=== PATIENT | male | born 1975 | race Caucasian/White ===

== ENCOUNTER 2019-01-12 18:07 | Emergency (ER) | payer OTHER ==
[2019-01-12 18:15] VITALS: BP 150/91
--- NOTE | 2019-01-12 18:18 | ER Document Report ---
ED Medical Screen (RME) - General Chief Complaint: Arm Pain Stated Complaint: RIGHT ARM PAIN Time Seen by Provider: 01/12/19 18:15 Primary Care Provider: CAROLINA MALDONADO MD [Primary Care Provider] - Follow up as needed Mode of Arrival: Ambulatory Information source: Patient Notes: 43-year-old male presented to ED for complaint of pain to his right arm. He states he was trying to pull start on a 4 bhat and he thinks he injured the ligaments or tendons in his right forearm. He states it is been throbbing since he pulled the starter. He is alert oriented respirations regular and unlabored speaking in full sentences. Has full range of motion to his hand and wrist. He states there is pain in his forearm and his fingers keep going to sleep. I have greeted and performed a rapid initial assessment of this patient. A comprehensive ED assessment and evaluation of the patient, analysis of test results and completion of medical decision making process will be conducted by an additional ED providers. TRAVEL OUTSIDE OF THE [place] IN LAST 30 DAYS: No - Related Data Allergies/Adverse Reactions: No Known Allergies Allergy (Unverified 08/03/15 16:13) Past Medical History - Past Medical History Cardiac Medical History: Reports: Hx Hypercholesterolemia Endocrine Medical History: Reports: Hx Diabetes Mellitus Type 1, Hx Diabetes Mellitus Type 2, Hx Hypothyroidism Psychiatric Medical History: Denies: Hx Depression - Immunizations Immunizations up to date: Yes Hx Diphtheria, Pertussis, Tetanus Vaccination: Yes Doctor's Discharge - Discharge Referrals: CAROLINA MALDONADO MD [Primary Care Provider] - Follow up as needed
--- NOTE | 2019-01-12 18:51 | RADIOLOGY REPORT (SQ) ---
EXAM DESCRIPTION: FOREARM RIGHT COMPLETED DATE/TIME: 01/12/2019 6:43 pm REASON FOR STUDY: pain injury COMPARISON: None. NUMBER OF VIEWS: Two views. TECHNIQUE: Two radiographic images acquired of the right forearm, including elbow and wrist in at le ast one projection. LIMITATIONS: None. FINDINGS: MINERALIZATION: Normal. BONES: No acute fracture. No worrisome bone lesions. SOFT TISSUES: No obvious swelling or foreign body. OTHER: No other significant finding. IMPRESSION: NEGATIVE STUDY OF THE RIGHT FOREARM. NO RADIOGRAPHIC EVIDENCE OF ACUTE INJURY. TECHNICAL DOCUMENTATION: JOB ID: [id number] [employer]- All Rights Reserved Reading location - IP/workstation name: [email or web address] [id number]
--- NOTE | 2019-01-12 18:52 | RADIOLOGY REPORT (SQ) ---
EXAM DESCRIPTION: HAND RIGHT 3 VIEWS COMPLETED DATE/TIME: 01/12/2019 6:43 pm REASON FOR STUDY: Pain and injury wrist and hand and forearm COMPARISON: None. EXAM PARAMETERS: NUMBER OF VIEWS: Three views. TECHNIQUE: AP, lateral and oblique radiographic images acquired of the right hand. LIMITATIONS: None. FINDINGS: MINERALIZATION: Normal. BONES: No acute fracture or dislocation. No worrisome bone lesions. JOINTS: No effusions. SOFT TISSUES: No soft tissue swelling. No foreign body. OTHER: No other significant finding. IMPRESSION: NEGATIVE STUDY OF THE RIGHT HAND. NO RADIOGRAPHIC EVIDENCE OF ACUTE INJURY. TECHNICAL DOCUMENTATION: JOB ID: [id number] [employer]- All Rights Reserved Reading location - IP/workstation name: [email or web address]
--- NOTE | 2019-01-12 18:52 | RADIOLOGY REPORT (SQ) ---
EXAM DESCRIPTION: WRIST RIGHT 3 VIEWS COMPLETED DATE/TIME: 01/12/2019 6:43 pm REASON FOR STUDY: Pain and injury wrist and hand and forearm COMPARISON: None. NUMBER OF VIEWS: Three views. TECHNIQUE: AP, lateral, and oblique radiographic images acquired of the right wrist. LIMITATIONS: None. FINDINGS: MINERALIZATION: Normal. BONES: No acute fracture or dislocation. No worrisome bone lesions. Normal alignment. SOFT TISSUES: No soft tissue swelling. No foreign body. OTHER: No other significant finding. IMPRESSION: NEGATIVE STUDY OF THE RIGHT WRIST. NO RADIOGRAPHIC EVIDENCE OF ACUTE INJURY. TECHNICAL DOCUMENTATION: JOB ID: [id number] [employer]- All Rights Reserved Reading location - IP/workstation name: [email or web address]
--- NOTE | 2019-01-12 19:05 | ER Document Report ---
HPI - HPI Patient complains to provider of: rightarm pain Time Seen by Provider: 01/12/19 18:15 Onset: Yesterday Onset/Duration: Persistent Severity: Severe Pain Level: 4 Context: This 43-year-old male presents emergency department with right hand forearm elbow pain that started yesterday after he was pulling the starter cord for a 4 bhat. Reports he pulled the cord and it kind of stepped back on him. Jerking his hand. Reports since that time he has had pain in his forearm and his third and fourth fingers feel numb. Denies past medical history of injury to the arm or hand. 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 No other complaints such as fever vomiting diarrhea. Associated Symptoms: None Exacerbated by: Denies Relieved by: Denies Similar symptoms previously: No Recently seen / treated by doctor: No - REPRODUCTIVE Reproductive: DENIES: : Past Medical History - General Information source: Patient - Social History Smoking Status: Never Smoker Frequency of alcohol use: Occasional Drug Abuse: None Occupation: [employer] Family History: Reviewed & Not Pertinent Patient has suicidal ideation: No Patient has homicidal ideation: No - Past Medical History Cardiac Medical History: Reports: Hx Hypercholesterolemia Endocrine Medical History: Reports: Hx Diabetes Mellitus Type 1, Hx Diabetes Mellitus Type 2, Hx Hypothyroidism Psychiatric Medical History: Denies: Hx Depression Surgical Hx: Negative - Immunizations Immunizations up to date: Yes Hx Diphtheria, Pertussis, Tetanus Vaccination: Yes Vertical Provider Document - CONSTITUTIONAL Agree With Documented VS: Yes Exam Limitations: No Limitations General Appearance: WD/WN, No Apparent Distress - INFECTION CONTROL TRAVEL OUTSIDE OF THE [place] IN LAST 30 DAYS: No - HEENT HEENT: Atraumatic - NECK Neck: Supple - RESPIRATORY Respiratory: No Respiratory Distress - CARDIOVASCULAR Cardiovascular: Regular Rate - MUSCULOSKELETAL/EXTREMETIES Musculoskeletal/Extremeties: MAEW, FROM, Tender - right 3rd/4th fingers ttp- reports numb feeling, no obvious injury, cap refill<2seconds 3/4th palm fingers near PIP with slight ecchymosis, good radial pulse Right elbow forearm hand with no obvious injury no deformity good radial pulse - NEURO Level of Consciousness: Awake, Alert, Appropriate Motor/Sensory: No Motor Deficit - DERM Integumentary: Warm, Dry Course - Re-evaluation Re-evalutation: 01/12/19 19:01 Hand X-Ray 01/12/19 18:18 IMPRESSION: NEGATIVE STUDY OF THE RIGHT HAND. NO RADIOGRAPHIC EVIDENCE OF ACUTE INJURY. Wrist X-Ray 01/12/19 18:18 IMPRESSION: NEGATIVE STUDY OF THE RIGHT WRIST. NO RADIOGRAPHIC EVIDENCE OF ACUTE INJURY. Forearm X-Ray 01/12/19 18:23 IMPRESSION: NEGATIVE STUDY OF THE RIGHT FOREARM. NO RADIOGRAPHIC EVIDENCE OF ACUTE INJURY. 01/12/19 19:24 Patient presents emergency department with complaints of right forearm hand pain after pulling a pull cord on a 4 bhat and it snapping back on him. Denies past medical history of injury to this arm. He is right-hand dominant. 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 Slight ecchymosis to the palm of his fourth and fifth fingers near the pIP. Good cap refill less than 2 seconds good radial pulse. No obvious deformity. Patient was instructed to monitor the symptoms and follow-up with orthopedic for continued pain. He verbalized understanding to all instructions. Dictation of this chart was performed using voice recognition software; therefore, there may be some unintended grammatical errors. - Vital Signs Vital signs: Temp Pulse Resp BP Pulse Ox 97.8 F 73 18 150/91 H 99 01/12/19 18:15 01/12/19 18:15 01/12/19 18:15 01/12/19 18:15 01/12/19 18:15 - Diagnostic Test Radiology reviewed: Image reviewed Discharge - Discharge Clinical Impression: right forearm hand pain Condition: Stable Disposition: HOME, SELF-CARE Instructions: Use of Mpke-Rox-Lkasors Ibuprofen ([facility]), Ice & Elevation ([facility]) Additional Instructions: *You have been evaluated for right forearm, hand pain *rest ice elevate your arm/hand *Follow up with orthopedics within one week for continued pain *Take ibuprofen as indicated *Return to ED for worsening condition, changes, needs, concerns Referrals: CAROLINA MALDONADO MD [Primary Care Provider] - Follow up as needed MARILEE TOMPKINS DO [ACTIVE STAFF] - Follow up in 1 week
== END 2019-01-12 19:24 | disposition home or self-care (01) ==
LOC: ER 18:07
DX: M79.601 Pain in right arm (principal); M79.641 Pain in right hand; R20.0 Anesthesia of skin; X58.XXXA Exposure to other specified factors, initial encounter; E11.9 Type 2 diabetes mellitus without complications
CPT/HCPCS: 99283

== ENCOUNTER 2019-02-19 12:59 | Emergency (ER) | payer OTHER ==
--- NOTE | 2019-02-19 13:43 | ER Document Report ---
ED Skin Rash/Insect Bite/Abscs - General Chief Complaint: Abscess Stated Complaint: POSSIBLE ABSCESS Time Seen by Provider: 02/19/19 13:22 Primary Care Provider: CAROLINA MALDONADO MD [NO LOCAL MD] - Follow up as needed Mode of Arrival: Ambulatory Information source: Patient Notes: 43-year-old male presented to ED for abscess to the left side of his neck. He states it was draining but is no longer draining and is getting larger and more painful. He does have a history of MRSA and he is a diabetic. He does have thyroid issues and cholesterol issues. He is alert oriented respirations regular nonlabored at this time. TRAVEL OUTSIDE OF THE [place] IN LAST 30 DAYS: No - HPI Patient complains to provider of: Tender/swollen area Onset: Other - Monday Onset/Duration: Gradual Quality of pain: Achy, Burning, Sharp, Throbbing Severity: Moderate Pain Level: 3 Skin Character: Abscess Skin Temperature: Warm Quality of rash: Painful Identify cause: Yes - Abscess Exacerbated by: Movement Relieved by: Denies Similar symptoms previously: Yes Recently seen / treated by doctor: No - Related Data Allergies/Adverse Reactions: No Known Allergies Allergy (Verified 02/19/19 13:19) Past Medical History - General Information source: Patient - Social History Smoking Status: Never Smoker Frequency of alcohol use: Social Drug Abuse: None Lives with: Family Family History: Reviewed & Not Pertinent Patient has suicidal ideation: No Patient has homicidal ideation: No - Past Medical History Cardiac Medical History: Reports: Hx Hypercholesterolemia Pulmonary Medical History: Reports: None EENT Medical History: Reports: None Neurological Medical History: Reports: None Endocrine Medical History: Reports: Hx Diabetes Mellitus Type 2, Hx Hypothyroidism Renal/ Medical History: Reports: None Malignancy Medical History: Reports None GI Medical History: Reports: None Musculoskeletal Medical History: Reports None Skin Medical History: Reports Hx Cellulitis, Reports Hx MRSA Psychiatric Medical History: Reports: None Traumatic Medical History: Reports: None Infectious Medical History: Reports: None - Immunizations Immunizations up to date: Yes Hx Diphtheria, Pertussis, Tetanus Vaccination: Yes Review of Systems - Review of Systems Constitutional: No symptoms reported EENT: No symptoms reported Cardiovascular: No symptoms reported Respiratory: No symptoms reported Gastrointestinal: No symptoms reported Genitourinary: No symptoms reported Male Genitourinary: No symptoms reported Musculoskeletal: No symptoms reported Skin: Other - Abscess left neck Hematologic/Lymphatic: No symptoms reported Neurological/Psychological: No symptoms reported -: Yes All other systems reviewed and negative Physical Exam - Vital signs Vitals: Temp Pulse Resp BP Pulse Ox 98.0 F 82 16 137/85 H 96 02/19/19 13:09 02/19/19 13:09 02/19/19 13:09 02/19/19 13:09 02/19/19 13:09 Interpretation: Normal - General General appearance: Appears well, Alert - HEENT Head: Normocephalic, Atraumatic Eyes: Normal Pupils: PERRL - Respiratory Respiratory status: No respiratory distress Chest status: Nontender Breath sounds: Normal Chest palpation: Normal - Cardiovascular Rhythm: Regular Heart sounds: Normal auscultation Murmur: No - Abdominal Inspection: Normal Distension: No distension Bowel sounds: Normal Tenderness: Nontender Organomegaly: No organomegaly - Back Back: Normal, Nontender - Extremities General upper extremity: Normal inspection, Nontender, Normal color, Normal ROM, Normal temperature General lower extremity: Normal inspection, Nontender, Normal color, Normal ROM, Normal temperature, Normal weight bearing. No: Reggie's sign - Neurological Neuro grossly intact: Yes Cognition: Normal Orientation: AAOx4 Esperanza Coma Scale Eye Opening: Spontaneous Esperanza Coma Scale Verbal: Oriented Eldridge Coma Scale Motor: Obeys Commands Eldridge Coma Scale Total: 15 Speech: Normal Motor strength normal: LUE, RUE, LLE, RLE Sensory: Normal - Psychological Associated symptoms: Normal affect, Normal mood - Skin Skin Temperature: Warm Skin Moisture: Dry Skin Color: Normal Skin irregularity: Abscess Location of irregularity: Neck Irregularity with: Swelling, Tenderness, Warmth Course - Vital Signs Vital signs: Temp Pulse Resp BP Pulse Ox 97.9 F 74 14 124/84 98 02/19/19 16:54 02/19/19 16:54 02/19/19 16:54 02/19/19 16:54 02/19/19 16:54 - Laboratory Result Diagrams: 02/19/19 13:50 02/19/19 13:50 Laboratory results interpreted by me: 02/19/19 13:50 Glucose 111 H - Diagnostic Test Radiology reviewed: Image reviewed, Reports reviewed Procedures - Incision and Drainage Left Neck Time completed: 13:51 Type: Complex, Multiple Anesthetic type: 1% Lidocaine mL's of anesthetic: 5 Blade size: 11 I&D procedure: Shurclens applied Incision Method: Incision made by scalpel Amount/type of drainage: Large amount purulent drainage Notes: 02/19/19 13:51 After superficial abscess was I&D and there was still large firm area noted after I&D and large amount of drainage. Consulted Dr. Payne due to came and examined the patient. He recommended a soft tissue IV contrasted CT of the neck. CBC chemistry blood culture and wound culture have been ordered. Discharge - Discharge Clinical Impression: Abscess of skin of neck Condition: Stable Disposition: HOME, SELF-CARE Additional Instructions: ABSCESS: You have an abscess (boil). This a pus-forming infection, usually due to staph. Some boils may be left to drain on their own, but most require lancing. From the time the tender lump first appears, it may be three or four days before the abscess is ready to jai. Local heat and rest help at this stage of treatment. An antibiotic may prevent spread of the infection. Once the abscess is opened, packing may be placed into it. This is done so pus is not sealed inside by premature closure of the cavity. The packing will be removed at your follow-up visit or you may be advised to remove it yourself at home. Sometimes this packing must be replaced a few times during healing. The wound will heal with surprisingly little scar. Depending on the size and location of an abscess, healing can take one to four weeks. You may shower and wash the area around the incision site two or three times a day. Antibiotics may be prescribed, but are usually not necessary after an abscess has been drained. If you develop fever, chills, worsening pain, or increasing swelling in the area, call the doctor or return immediately. POST INCISION AND DRAINAGE: You have had an incision made to allow drainage of an abscess. The incision must remain open so that pus and debris can drain from the wound. If the abscess cavity is large, packing is placed. This keeps the tissues from collapsing and trapping pus inside, while the body shrinks the cavity. The packing may need to be replaced every day or two. The physician will instruct you on the packing. Keep a bulky dressing over the area. Replace it if it becomes saturated with blood or pus. Do not disturb the packing (if present). You may shower and cleanse the area with gentle soap and warm water two or three times a day. Local warmth may be soothing, and may promote faster healing. Return if you develop high fever or chills, or if you note spreading redness, increasing swelling, or increasing tenderness. MRSA CELLULITIS: You have an infection of your skin and underlying soft tissues called cellulitis. This is due to bacteria, which can enter through any break in the skin, or even through an irritated hair follicle. Untreated, cellulitis will usually worsen and may form an abscess which requires draining. Although many bacterial organisms can cause cellulitis and abscess formations, the most likely bacteria is Methicillin-Resistant Staph Aureus, or MRSA for short. Antibiotics are required. Usually, warm packs or warm soaks, and elevation of the infected area are recommended. You should start getting better within 24 to 36 hours. Most infections respond quickly to the right medication. Follow-up care is important, however, to check for abscess (boil) formation, unsuspected foreign body, or resistant infection. If you develop fever, chills, or if the area of infection is becoming rapidly more swollen or painful, call the doctor at once. CEPHALEXIN: The antibiotic you've been prescribed is a member of the cephalosporin class. This type of antibiotic covers a wide variety of infections, including those of the skin, lungs, and urinary tract. It's useful for staph infections. This antibiotic is slightly similar to the penicillin family. In rare cases, a person who is allergic to penicillin will also be allergic to this medication. If you have had a severe allergic reaction to penicillin, and have not taken this antibiotic since that time, notify your doctor. Antibiotics which cover many germs ("broad spectrum" antibiotics) are more likely to cause diarrhea or "yeast" infections. Women prone to vaginal yeast problems may suffer an attack after taking this antibiotic. In infants, oral thrush (white spots "stuck" on the cheek) or yeast diaper rash may result. See your doctor if these problems occur. Call at once if you develop itching, hives, shortness of breath, or lightheadedness. TRIMETHOPRIM-SULFA: You have been given a prescription for trimethoprim-sulfa (TMS, Septra, Bactrim). This is a combination antibiotic of the sulfa class, often used for urinary tract infections, middle ear infections, bronchitis, shigella intestinal infection, and Pneumocystis pneumonia. TMS is usually well-tolerated. Occasional side effects include nausea and decreased appetite. Septra is not recommended for infants less than two months of age. Do not take this medication if you have experienced severe side effects or allergy to sulfa medicine. You should stop this medicine at once and contact your physician if you develop any rash, joint pain, shortness of breath, bruising, or jaundice (yellow color in the skin), or if you develop any other new or unusual symptoms. Please follow-up with your primary care or the ED to have the packing removed and your abscess reevaluated on Monday FOLLOW-UP CARE: Most simple abscesses will not require a follow up visit. If you had packing placed in the abscess, remove it as instructed by the physician. If you have been referred to a physician for follow-up care, call the physicians office for an appointment as you were instructed or within the next two days. If you experience worsening or a significant change in your symptoms, return to the Emergency Department at any time for re-evaluation. Prescriptions: Sulfamethoxazole/Trimethoprim [Bactrim Ds Tablet] 1 each PO BID #20 tablet Cephalexin Monohydrate [Keflex 500 mg Capsule] 500 mg PO QID #20 capsule Forms: Elevated Blood Pressure Referrals: CAROLINA MALDONADO MD [NO LOCAL MD] - Follow up as needed
[2019-02-19 14:10] LABS: ABSOLUTE EOSINOPHILS # (AUTO) 0.2 10^3/uL (0.0-0.6); ABSOLUTE LYMPHOCYTES (AUTO) 2.3 10^3/uL (0.5-4.7); ABSOLUTE MONOCYTES (AUTO) 0.7 10^3/uL (0.1-1.4); ABSOLUTE NEUT (AUTO) 6.6 10^3/uL (1.7-8.2); BASOPHILS % (AUTO) 0.3 % (0-2); EOSINOPHILS % (AUTO) 1.6 % (0-6); HEMATOCRIT 45.3 % (37.9-51.0); HEMOGLOBIN 15.5 g/dL (13.5-17.0); LYMPHOCYTES % (AUTO) 23.5 % (13-45); MEAN CORPUSCULAR HEMOGLOBIN 30.5 pg (27.0-33.4); MEAN CORPUSCULAR HGB CONC 34.2 g/dL (32.0-36.0); MEAN CORPUSCULAR VOLUME 89 fl (80-97); MONOCYTES % (AUTO) 7.1 % (3-13); PLATELET COUNT 283 10^3/uL (150-450); RED BLOOD COUNT 5.07 10^6/uL (4.35-5.55); RED CELL DISTRIBUTION WIDTH 13.7 % (11.5-14.0); SEGMENTED NEUTROPHILS % (AUTO) 67.5 % (42-78); TOTAL CELLS COUNTED % (AUTO) 100 %; WHITE BLOOD COUNT 9.8 10^3/uL (4.0-10.5)
[2019-02-19 14:38] LABS: ALBUMIN 4.4 g/dL (3.5-5.0); ALKALINE PHOSPHATASE 88 U/L (38-126); ANION GAP 9 (5-19); ASPARTATE AMINO TRANSFERASE 20 U/L (17-59); BILIRUBIN,DIRECT 0.2 mg/dL (0.0-0.4); BILIRUBIN,TOTAL 0.8 mg/dL (0.2-1.3); BLOOD UREA NITROGEN 13 mg/dL (7-20); CALCIUM 9.5 mg/dL (8.4-10.2); CARBON DIOXIDE 28 mmol/L (22-30); CHLORIDE 107 mmol/L (98-107); GLUCOSE 111 mg/dL (75-110); POTASSIUM 3.9 mmol/L (3.6-5.0)
--- NOTE | 2019-02-19 16:06 | RADIOLOGY REPORT (SQ) ---
EXAM DESCRIPTION: CT SOFT TISSUE NECK WITH COMPLETED DATE/TIME: 02/19/2019 3:13 pm REASON FOR STUDY: abscess COMPARISON: None. TECHNIQUE: Post IV contrasted scanning from skull base through lung apices with review of bone, soft tissue and lung windows. Reconstructed coronal and sagittal MPR images reviewed. All images stored on PACS. All CT scanners at this facility use dose modulation, iterative reconstruction, and/or weight based d osing when appropriate to reduce radiation dose to as low as reasonably achievable (ALARA). [facility]: Dose Right [facility]: CareDose [facility]: Dose Right [facility]: Teradose 4D [facility]: Bocandy CONTRAST TYPE AND DOSE: contrast/concentration: Isovue 350.00 mg/ml; Total Contrast Delivered: 75.0 ml; Total Saline Delivered: 53.0 ml RENAL FUNCTION: BUN 13 creatinine 0.88 RADIATION DOSE: CT Rad equipment meets quality standard of care and radiation dose reduction techniq ues were employed. CTDIvol: 16.9 mGy. DLP: 555 mGy-cm. . LIMITATIONS: None. FINDINGS: SKULL BASE: Intact. MAJOR SALIVARY GLANDS: No solid or cystic masses. No inflammatory changes. LYMPHADENOPATHY: There are some small nonspecific sub mandibular and submental nodes. MUCOSAL MASSES OR ASYMMETRY: There is mild prominence of the right pharyngeal tonsil. No peritonsill ar abscess is appreciated. LARYNX/CORDS: No abnormal findings. VASCULAR STRUCTURES: The major vessels are patent. LUNG APICES: Clear. BONES: Intact. THYROID: Normal size. No masses. PARANASAL SINUSES: Clear. OTHER: No other significant finding. IMPRESSION: Right tonsillar prominence. No peritonsillar abscess. There are some small nonspecific sub mandibular and submental nodes. TECHNICAL DOCUMENTATION: JOB ID: [id number] Quality ID # [id number]: Final reports with documentation of one or more dose reduction techniques (e.g., Au tomated exposure control, adjustment of the mA and/or kV according to patient size, use of iterative reconstruction technique) 2010 [employer]- All Rights Reserved Reading location - IP/workstation name: [email or web address]
[2019-02-19] MEDS ORDERED: LIDOCAINE 1% INJ-PF (10 MG/ML) 30 ML SDV INJ ONE (16:15)
[2019-02-19] MEDS ORDERED: CEPHALEXIN 500 MG CAPSULE PO ONE (16:16)
[2019-02-19] MEDS ORDERED: SULFAMETHOXAZOLE/TRIMETHOPRIM 800-160 MG TABLET PO ONE (16:16)
[2019-02-19 16:55] VITALS: BP 124/84
== END 2019-02-19 16:56 | disposition home or self-care (01) ==
LOC: ER 12:59
DX: L02.11 Cutaneous abscess of neck (principal); E78.00 Pure hypercholesterolemia, unspecified; E11.9 Type 2 diabetes mellitus without complications; E03.9 Hypothyroidism, unspecified; Z86.14 Personal history of Methicillin resistant Staphylococcus aureus infection
CPT/HCPCS: 99283; 36415; 87040; 87070; 87205; 85025; 87075; 87077; 80053; 87186; 70491; 10061; A6266; J3490

== ENCOUNTER 2019-07-15 21:45 | Inpatient (IN) | payer OTHER ==
[2019-07-15] MEDS ORDERED: AMPICILLIN SOD/SULBACTAM 3 GM VIAL IV ONE (23:20)
--- NOTE | 2019-07-15 23:37 | ER Document Report ---
ED General - General Chief Complaint: Insect Bite Stated Complaint: SPIDER BITE ON RIGHT HAND Time Seen by Provider: 07/15/19 22:54 Primary Care Provider: YAMINI KENNEDY MD [Primary Care Provider] - Follow up as needed TRAVEL OUTSIDE OF THE [place] IN LAST 30 DAYS: No - HPI Notes: Patient is a 43-year-old male who presents to the emergency department for evaluation of pain and swelling in his right ring finger. He states he believes he was bitten by a spider on Monday. He states it started as a small pustule, has gradually gotten worse. He saw his primary care provider today, has had 2 doses of Augmentin. He states the swelling is worsened. He has throbbing pain that he rates anywhere between a 2 out of 5 to a 5 out of 5, depending on the moment. He denies any numbness or tingling. He states he has pressure with movement but is still able to move it without difficulty. Patient is a type I diabetic, states his blood sugars have been controlled. - Related Data Allergies/Adverse Reactions: No Known Allergies Allergy (Verified 02/19/19 13:19) Home Medications: Levothyroxine, Humolog, Humulin, Simvastatin Past Medical History - General Information source: Patient - Social History Smoking Status: Never Smoker Frequency of alcohol use: Occasional Drug Abuse: None Family History: Reviewed & Not Pertinent Patient has suicidal ideation: No Patient has homicidal ideation: No - Past Medical History Cardiac Medical History: Reports: Hx Hypercholesterolemia Endocrine Medical History: Reports: Hx Diabetes Mellitus Type 1, Hx Hypothyroidism Skin Medical History: Reports Hx Cellulitis, Reports Hx MRSA Psychiatric Medical History: Denies: Hx Depression - Immunizations Immunizations up to date: Yes Hx Diphtheria, Pertussis, Tetanus Vaccination: Yes Review of Systems - Review of Systems Musculoskeletal: See HPI Skin: See HPI -: Yes All other systems reviewed and negative Physical Exam - Vital signs Vitals: Temp Pulse Resp BP Pulse Ox 98.6 F 81 16 162/89 H 99 07/15/19 21:49 07/15/19 21:49 07/15/19 21:49 07/15/19 21:49 07/15/19 21:49 - Notes Notes: Vital signs reviewed, please refer to chart. Head is normocephalic, atraumatic. Pupils equal round, reactive to light. Neck is supple without meningismus. Heart is regular rate and rhythm. Lungs are clear to auscultation bilaterally. Abdomen is soft, nontender, normoactive bowel sounds throughout. Extremities without cyanosis, clubbing. Examination of the right hand yields a moderate amount of edema to the right ring finger and the dorsum of the hand. Swelling is most focally to the proximal phalanx of the right finger with necrotic appearing skin overlying the top of the phalanx. He has full range of motion at the PIP DIP, MCP. Sensation is intact, palpable refill is brisk. He has mild erythema that tracks approximately 5 cm proximal to the wrist up the forearm. Course - Re-evaluation Re-evalutation: 07/15/19 23:37 Patient presents to the emergency department for evaluation. He has had 2 doses of Augmentin, so was under 24 hours of treatment. Blood work and blood cultures are ordered. Patient is told to keep his hand elevated at all times. We will give a dose of Augmentin. He also has a history of MRSA, so a dose of vancomycin will be ordered as well once I verify renal function. Patient is stable at this time, we will continue to monitor. 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 He is not toxic in appearance. Decision was made to administer oral Bactrim, which showed an excellent SANTIAGO against the MRSA he had. X-ray is pending at this time, we will consult Dr. Gonzalez for further managemen t. 07/16/19 01:57 Patient states his pain is increased somewhat. I have ordered morphine and Zofran to help with his symptoms. X-ray was interpreted by myself as showing no obvious soft tissue gas, bony changes. I spoke with Dr. Gonzalez. Given this patient status is a diabetic as well as the noted edema, he believes that admission would be most appropriate. Given his status as an admit, I did add vancomycin IV. I spoke with Dr. Kennedy, he will admit the patient for further care. - Vital Signs Vital signs: Temp Pulse Resp BP Pulse Ox 98.6 F 81 16 162/89 H 99 07/15/19 21:49 07/15/19 21:49 07/15/19 21:49 07/15/19 21:49 07/15/19 21:49 - Laboratory Result Diagrams: 07/15/19 23:55 07/15/19 23:55 Laboratory results interpreted by me: 07/15/19 07/15/19 23:55 23:55 WBC 12.0 H Lymph % (Auto) 12.5 L Absolute Neuts (auto) 9.3 H Sodium 136.7 L Glucose 179 H - Diagnostic Test Radiology reviewed: Image reviewed Discharge - Discharge Clinical Impression: Cellulitis of right ring finger, Diabetes mellitus type 1 Condition: Stable Disposition: ADMITTED INPATIENT Admitting Provider: [facility] Admitted: Medical Floor Referrals: YAMINI KENNEDY MD [Primary Care Provider] - Follow up as needed
[2019-07-16] MEDS ORDERED: SULFAMETHOXAZOLE/TRIMETHOPRIM 800-160 MG TABLET PO ONE (00:06)
[2019-07-16 00:17] LABS: ABSOLUTE BASOPHILS # (AUTO) 0.1 10^3/uL (0.0-0.2); ABSOLUTE EOSINOPHILS # (AUTO) 0.1 10^3/uL (0.0-0.6); ABSOLUTE LYMPHOCYTES (AUTO) 1.5 10^3/uL (0.5-4.7); ABSOLUTE MONOCYTES (AUTO) 0.9 10^3/uL (0.1-1.4); ABSOLUTE NEUT (AUTO) 9.3 10^3/uL (1.7-8.2); BASOPHILS % (AUTO) 0.8 % (0-2); EOSINOPHILS % (AUTO) 1.1 % (0-6); HEMATOCRIT 42.7 % (37.9-51.0); HEMOGLOBIN 14.6 g/dL (13.5-17.0); LYMPHOCYTES % (AUTO) 12.5 % (13-45); MEAN CORPUSCULAR HEMOGLOBIN 30.5 pg (27.0-33.4); MEAN CORPUSCULAR HGB CONC 34.1 g/dL (32.0-36.0); MEAN CORPUSCULAR VOLUME 90 fl (80-97); MONOCYTES % (AUTO) 7.7 % (3-13); PLATELET COUNT 231 10^3/uL (150-450); RED BLOOD COUNT 4.77 10^6/uL (4.35-5.55); RED CELL DISTRIBUTION WIDTH 13.6 % (11.5-14.0); SEGMENTED NEUTROPHILS % (AUTO) 77.9 % (42-78); TOTAL CELLS COUNTED % (AUTO) 100 %
[2019-07-16 00:25] LABS: ALBUMIN 4.2 g/dL (3.5-5.0); ALKALINE PHOSPHATASE 94 U/L (38-126); ANION GAP 8 (5-19); ASPARTATE AMINO TRANSFERASE 24 U/L (17-59); BILIRUBIN,DIRECT 0.1 mg/dL (0.0-0.4); BILIRUBIN,TOTAL 0.9 mg/dL (0.2-1.3); BLOOD UREA NITROGEN 20 mg/dL (7-20); CALCIUM 9.7 mg/dL (8.4-10.2); CARBON DIOXIDE 27 mmol/L (22-30); CHLORIDE 102 mmol/L (98-107); GLUCOSE 179 mg/dL (75-110); POTASSIUM 3.8 mmol/L (3.6-5.0); TOTAL PROTEIN 7.4 g/dL (6.3-8.2)
[2019-07-16] MEDS ORDERED: ONDANSETRON HCL INJ/PF 4 MG/2 ML SDV IV ONE (01:54)
[2019-07-16] MEDS ORDERED: MORPHINE SULFATE 10 MG/ML INJ IV ONE (01:54)
[2019-07-16] MEDS ORDERED: VANCOMYCIN HCL INJ 1000 MG VIAL IV ONE (01:55)
[2019-07-16] MEDS ORDERED: ONDANSETRON HCL INJ/PF 4 MG/2 ML SDV IV PRN ×2 (01:58→14:12)
[2019-07-16] MEDS ORDERED: NORMAL SALINE 1000 ML 1,000 ML IV PRN (01:58)
[2019-07-16] MEDS ORDERED: DEXTROSE 50%-WATER 25 GM/50 ML DISP.SYRIN IV PRN ×2 (02:03)
[2019-07-16] MEDS ORDERED: GLUCAGON,HUMAN RECOMB 1 MG INJ IM PRN (02:03)
[2019-07-16] MEDS ORDERED: DEXTROSE 40% GEL 15 GM TUBE PO PRN ×2 (02:03)
--- NOTE | 2019-07-16 02:11 | RADIOLOGY REPORT (SQ) ---
CLINICAL INDICATION: cellulitis right ring proximal phalanx. . TECHNIQUE: 3 view(s) were obtained of the right hand. COMPARISON: None. FINDINGS: No acute displaced fracture is identified of the hand. Alignment appears anatomic. Joint spaces are within normal limits for age. Soft tissue swelling. No retained radiopaque foreign body. IMPRESSION: No evidence of acute bony injury to the hand.
[2019-07-16 02:49] LABS: ANION GAP 7 (5-19); BLOOD UREA NITROGEN 19 mg/dL (7-20); CALCIUM 9.3 mg/dL (8.4-10.2); CARBON DIOXIDE 28 mmol/L (22-30); CHLORIDE 103 mmol/L (98-107); GLUCOSE 131 mg/dL (75-110); POTASSIUM 4.1 mmol/L (3.6-5.0)
[2019-07-16] MEDS ORDERED: AMPICILLIN SOD/SULBACTAM 3 GM VIAL ONE (06:09)
[2019-07-16] MEDS: PANTOPRAZOLE SODIUM 40 MG TABLET.DR PO SCH (06:30)
[2019-07-16] MEDS: AMPICILLIN SODIUM/SULBACTAM NA 3 GM in NORMAL SALINE 100 ML IV SCH ×4 (06:30→23:11)
--- NOTE | 2019-07-16 07:43 | PDOC CONSULTATION ---
Consultation Consult Date: 07/16/19 Attending physician:: YAMINI KENNEDY Provider Consulted: MARILEE TOMPKINS History of Present Illness Admission Date/PCP: 07/16/19 02:07 YAMINI KENNEDY MD Patient complains of: Pain right ring finger History of Present Illness: GAMAL CURRIE is a 43 year old male who presented to the emergency room with increasing redness swelling and pain in his right ring finger. He states this past Monday he developed a small pustule on the dorsal aspect of his ring finger he states he then popped the pustule and developed increasing redness swelling and pain especially over the last 48 hours. He was started on Augmentin which failed to provide improvement. Patient states pain is worse with any attempted motion. Denies fever chills or sweats. Denies numbness. Patient does have remote history of MRSA in the past. Pain 3/. Past Medical History Cardiac Medical History: Reports: Hyperlipidema Endocrine Medical History: Reports: Diabetes Mellitus Type 1, Diabetes Mellitus Type 2, Hypothyroidism Psychiatric Medical History: Denies: Depression Social History Smoking Status: Never Smoker Frequency of Alcohol Use: Occasional Hx Recreational Drug Use: No Drugs: None Hx Prescription Drug Abuse: No Family History Family History: Reviewed & Not Pertinent Parental Family History Reviewed: No Children Family History Reviewed: No Sibling(s) Family History Reviewed.: No Medication/Allergy Home Medications: Insulin Glargine,Hum.rec.anlog [Toujeo Solostar] 48 unit SQ QHS 08/03/15 Insulin Aspart [Novolog Flexpen] 0 unit SUBCUT .SLD SCALE PRN 08/04/15 Levothyroxine Sodium 175 mcg PO ACSUPPER 08/04/15 Cephalexin Monohydrate [Keflex 500 mg Capsule] 500 mg PO QID #20 capsule 02/19/19 Sulfamethoxazole/Trimethoprim [Bactrim Ds Tablet] 1 each PO BID #20 tablet 02/19/19 Insulin Degludec [Tresiba Flextouch U-100] AC 07/16/19 Allergies/Adverse Reactions: No Known Allergies Allergy (Verified 02/19/19 13:19) Review of Systems Constitutional: ABSENT: chills, fever(s), headache(s), weight gain, weight loss Eyes: ABSENT: visual disturbances Ears: ABSENT: hearing changes Cardiovascular: ABSENT: chest pain, dyspnea on exertion, edema, orthropnea, palpitations Respiratory: ABSENT: cough, hemoptysis Gastrointestinal: ABSENT: abdominal pain, constipation, diarrhea, hematemesis, hematochezia, nausea, vomiting Genitourinary: ABSENT: dysuria, hematuria Musculoskeletal: PRESENT: as per HPI Integumentary: ABSENT: rash, wounds Neurological: ABSENT: abnormal gait, abnormal speech, confusion, dizziness, focal weakness, syncope Psychiatric: ABSENT: anxiety, depression, homidical ideation, suicidal ideation Endocrine: ABSENT: cold intolerance, heat intolerance, menstrual abnormalities, polydipsia, polyuria Hematologic/Lymphatic: ABSENT: easy bleeding, easy bruising, lymphadenopathy Physical Exam Vital Signs: Temp Pulse Resp BP Pulse Ox 98.0 F 88 16 167/86 H 100 07/16/19 03:20 07/16/19 03:20 07/16/19 03:20 07/16/19 03:20 07/16/19 03:20 Intake & Output 07/15/19 07/16/19 07/17/19 06:59 06:59 06:59 Intake Total 220 Balance 220 Weight 106 kg General appearance: PRESENT: no acute distress, well-developed, well-nourished Head exam: PRESENT: atraumatic, normocephalic Eye exam: PRESENT: conjunctiva pink, EOMI, PERRLA. ABSENT: scleral icterus Ear exam: PRESENT: normal external ear exam Mouth exam: PRESENT: moist, tongue midline Neck exam: PRESENT: full ROM. ABSENT: carotid bruit, JVD, lymphadenopathy, thyr omegaly Cardiovascular exam: PRESENT: RRR. ABSENT: diastolic murmur, rubs, systolic murmur Pulses: PRESENT: normal dorsalis pedis pul, +2 pedal pulses bilateral Vascular exam: PRESENT: normal capillary refill GI/Abdominal exam: PRESENT: normal bowel sounds, soft. ABSENT: distended, guarding, mass, organolmegaly, rebound, tenderness Rectal exam: PRESENT: deferred Musculoskeletal exam: PRESENT: other - Right ring finger: Fusiform swelling throughout the digit centered along the dorsal aspect of the proximal phalanx necrotic discoloration along the superficial skin. Palpable fluctuance. No active drainage. No tenderness to palpation along the A2 or A4 madelyn. Mild tenderness on the A1 madelyn. Pain with attempted passive range of motion. No pain with passive extension. Cap refill less than 2 seconds. Normal skin turgor. Neurological exam: PRESENT: alert, awake, oriented to person, oriented to place, oriented to time, oriented to situation, CN II-XII grossly intact. ABSENT: motor sensory deficit Psychiatric exam: PRESENT: appropriate affect, normal mood. ABSENT: homicidal ideation, suicidal ideation Skin exam: PRESENT: dry, intact, warm. ABSENT: cyanosis, rash Results Laboratory Results: 07/15/19 23:55 07/16/19 02:20 07/15/19 07/15/19 07/16/19 23:55 23:55 02:20 WBC 12.0 H RBC 4.77 Hgb 14.6 Hct 42.7 MCV 90 MCH 30.5 MCHC 34.1 RDW 13.6 Plt Count 231 Seg Neutrophils % 77.9 Sodium 136.7 L 138.4 Potassium 3.8 4.1 Chloride 102 103 Carbon Dioxide 27 28 Anion Gap 8 7 BUN 20 19 Creatinine 0.92 0.90 Est GFR ( Amer) > 60 > 60 Glucose 179 H 131 H Calcium 9.7 9.3 Total Bilirubin 0.9 AST 24 Alkaline Phosphatase 94 Total Protein 7.4 Albumin 4.2 Impressions: Hand X-Ray 07/16/19 00:48 IMPRESSION: No evidence of acute bony injury to the hand. Status: Image reviewed by me - I have reviewed patient's radiographs consistent with soft tissue swelling no evidence of osseous involvement Assessment & Plan - Diagnosis (1) Abscess of right ring finger Is this a current diagnosis for this admission?: Yes Plan: Patient has evidence of dorsal abscess along the right ring finger. Given the severity of the swelling and developing compromise of the soft tissue envelope I have recommended operative intervention which includes irrigation debridement right ring finger. Risk and benefits were procedure have been explained to the patient including neurovascular risk, recurrent infection, postoperative pain, postoperative stiffness patient or stands given his history of diabetes is also increased risk for infection. He has verbalized understanding consented for surgical procedure.
--- NOTE | 2019-07-16 08:27 | PDOC H&P ---
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 Patient's not sure anything spider bite but could be no injury patient's developed a small pustule and then started developing the swelling and the redness Yesterday when I saw the patient start on a p.o. Augmentin and instructed if his pain getting worse come to the ER patient stated to dose of the Augmentin yesterday but pain is getting more worse came to the emergency departments last night\ Patient is received the IV vancomycin and Unasyn with a history of the MRSA in the past Patient seen by the hand surgeon scheduled for the debridement today Patient's blood sugar is 104 this morning he is denied any chest pain no short of breath Past Medical History Cardiac Medical History: Reports: Hyperlipidema Endocrine Medical History: Reports: Diabetes Mellitus Type 1, Hypothyroidism Psychiatric Medical History: Denies: Depression Social History Information Source: Patient Smoking Status: Never Smoker Frequency of Alcohol Use: Occasional Hx Recreational Drug Use: No Drugs: None Hx Prescription Drug Abuse: No Family History Family History: Reviewed & Not Pertinent Parental Family History Reviewed: Yes Children Family History Reviewed: Yes Sibling(s) Family History Reviewed.: Yes Medication/Allergy Home Medications: Insulin Glargine,Hum.rec.anlog [Toutaylor Solgeorge] 48 unit SQ QHS 08/03/15 Insulin Aspart [Novolog Flexpen] 0 unit SUBCUT .SLD SCALE PRN 08/04/15 Levothyroxine Sodium 175 mcg PO ACSUPPER 08/04/15 Cephalexin Monohydrate [Keflex 500 mg Capsule] 500 mg PO QID #20 capsule 02/19/19 Sulfamethoxazole/Trimethoprim [Bactrim Ds Tablet] 1 each PO BID #20 tablet 02/19/19 Insulin Degludec [Tresiba Flextouch U-100] AC 07/16/19 Allergies/Adverse Reactions: No Known Allergies Allergy (Verified 02/19/19 13:19) Review of Systems Constitutional: ABSENT: chills, fever(s), headache(s), weight gain, weight loss Eyes: ABSENT: visual disturbances Ears: ABSENT: hearing changes Cardiovascular: ABSENT: chest pain, dyspnea on exertion, edema, orthropnea, palpitations Respiratory: ABSENT: cough, hemoptysis Gastrointestinal: ABSENT: abdominal pain, constipation, diarrhea, hematemesis, hematochezia, nausea, vomiting Genitourinary: ABSENT: dysuria, hematuria Musculoskeletal: ABSENT: joint swelling Integumentary: ABSENT: rash, wounds Neurological: ABSENT: abnormal gait, abnormal speech, confusion, dizziness, focal weakness, syncope Psychiatric: ABSENT: anxiety, depression, homidical ideation, suicidal ideation Endocrine: ABSENT: cold intolerance, heat intolerance, menstrual abnormalities, polydipsia, polyuria Hematologic/Lymphatic: ABSENT: easy bleeding, easy bruising, lymphadenopathy Physical Exam Vital Signs: Temp Pulse Resp BP Pulse Ox 98.0 F 88 16 167/86 H 100 07/16/19 03:20 07/16/19 03:20 07/16/19 03:20 07/16/19 03:20 07/16/19 03:20 Intake & Output 07/15/19 07/16/19 07/17/19 06:59 06:59 06:59 Intake Total 220 Balance 220 Weight 106 kg General appearance: PRESENT: no acute distress, well-developed, well-nourished Head exam: PRESENT: atraumatic, normocephalic Eye exam: PRESENT: conjunctiva pink, EOMI, PERRLA. ABSENT: scleral icterus Ear exam: PRESENT: normal external ear exam Mouth exam: PRESENT: moist, tongue midline Neck exam: PRESENT: full ROM. ABSENT: carotid bruit, JVD, lymphadenopathy, thyromegaly Respiratory exam: PRESENT: clear to auscultation [place] Cardiovascular exam: PRESENT: RRR. ABSENT: diastolic murmur, rubs, systolic murmur Pulses: PRESENT: normal dorsalis pedis pul, +2 pedal pulses bilateral Vascular exam: PRESENT: normal capillary refill GI/Abdominal exam: PRESENT: normal bowel sounds, soft. ABSENT: distended, guarding, mass, organolmegaly, rebound, tenderness Rectal exam: PRESENT: deferred Extremities exam: ABSENT: pedal edema Additional comments: Right hand and the middle finger swelling redness and a draining is present Musculoskeletal exam: PRESENT: ambulatory Neurological exam: PRESENT: alert, awake, oriented to person, oriented to place, oriented to time, oriented to situation, CN II-XII grossly intact. ABSENT: motor sensory deficit Psychiatric exam: PRESENT: appropriate affect, normal mood. ABSENT: homicidal ideation, suicidal ideation Skin exam: PRESENT: dry, intact, warm. ABSENT: cyanosis, rash Results Laboratory Results: 07/15/19 23:55 07/16/19 02:20 07/15/19 07/15/19 07/16/19 23:55 23:55 02:20 WBC 12.0 H RBC 4.77 Hgb 14.6 Hct 42.7 MCV 90 MCH 30.5 MCHC 34.1 RDW 13.6 Plt Count 231 Seg Neutrophils % 77.9 Sodium 136.7 L 138.4 Potassium 3.8 4.1 Chloride 102 103 Carbon Dioxide 27 28 Anion Gap 8 7 BUN 20 19 Creatinine 0.92 0.90 Est GFR ( Amer) > 60 > 60 Glucose 179 H 131 H Calcium 9.7 9.3 Total Bilirubin 0.9 AST 24 Alkaline Phosphatase 94 Total Protein 7.4 Albumin 4.2 Impressions: Hand X-Ray 07/16/19 00:48 IMPRESSION: No evidence of acute bony injury to the hand. Assessment & Plan - Diagnosis (1) Abscess of right ring finger Is this a current diagnosis for this admission?: Yes Plan: Continues with broad-spectrum IV antibiotic follow-up with the hand surgery scheduled for the incision and drainage (2) Diabetes mellitus type 1 Qualifiers: Diabetes mellitus complication status: with other specified complication Qualified Code(s): E10.69 - Type 1 diabetes mellitus with other specified complication Is this a current diagnosis for this admission?: Yes Plan: Patient is currently n.p.o. continues a sliding scale patient usually take a 48 units of the Lantus at night and take her carb insulin during the day times will resume tomorrow (3) Hyperlipidemia Qualifiers: Hyperlipidemia type: unspecified Qualified Code(s): E78.5 - Hyperlipidemia, unspecified Is this a current diagnosis for this admission?: Yes (4) Hypothyroid Qualifiers: Hypothyroidism type: unspecified Qualified Code(s): E03.9 - Hypothyroidism, unspecified Is this a current diagnosis for this admission?: Yes - Time Time Spent: 30 to 50 Minutes Medications reviewed and adjusted accordingly: Yes Anticipated discharge: Home Within: Other - Inpatient Certification Based on my medical assessment, after consideration of the patient's comorbidities, presenting symptoms, or acuity I expect that the services needed warrant INPATIENT care.: Yes I certify that my determination is in accordance with my understanding of Medicare's requirements for reasonable and necessary INPATIENT services [42 CFR 412.3e].: Yes Medical Necessity: Failure to Improve With Outpatient Therapy, Need For IV Fluids, Need for Pain Control, Need for IV Antibiotics, Need for Surgery Post Hospital Care: D/C Internal Affairs Investigator Documentation - Plan Summary Plan Summary: Admit the patient on medical floor Follow-up with the surgery Continues the broad-spectrum IV antibiotic until the cultures back
[2019-07-16] MEDS ORDERED: VANCOMYCIN HCL 0 MG in DEXTROSE 5%-WATER 250 ML IV NR (08:30)
[2019-07-16] MEDS: OXYCODONE-ACETAMINOPHEN 5-325 MG TABLET PO PRN ×3 (09:19→22:30)
[2019-07-16] MEDS: VANCOMYCIN HCL 1,250 MG in DEXTROSE 5%-WATER 250 ML IV SCH ×2 (09:21→18:26)
[2019-07-16] MEDS: INSULIN LISPRO 100 UNIT/ML 3 ML VIAL SUBCUT SCH ×4 (09:22→22:28)
[2019-07-16] MEDS ORDERED: MIDAZOLAM 2 MG/2 ML INJ ONE (12:14)
[2019-07-16] MEDS ORDERED: ONDANSETRON HCL INJ/PF 4 MG/2 ML SDV ONE (12:14)
[2019-07-16] MEDS ORDERED: FENTANYL CITRATE INJ/PF 100 MCG/2 ML AMPUL ONE (12:14)
[2019-07-16] MEDS ORDERED: LIDOCAINE 2% INJ-PF (20 MG/ML) 10 ML AMPUL ONE (12:14)
[2019-07-16] MEDS ORDERED: PROPOFOL INJ 200 MG/20 ML VIAL IV ONE (12:15)
[2019-07-16] MEDS ORDERED: LIDOCAINE 1% INJ-PF (10 MG/ML) 30 ML SDV ONE (14:03)
[2019-07-16] MEDS ORDERED: MEPERIDINE HCL/PF INJ 25 MG/1 ML DISP.SYRIN IV PRN (14:12)
[2019-07-16] MEDS ORDERED: PROMETHAZINE HCL INJ 25 MG/1 ML VIAL IV PRN ×2 (14:12)
[2019-07-16] MEDS ORDERED: FENTANYL CITRATE INJ/PF 100 MCG/2 ML AMPUL IV PRN ×3 (14:12)
[2019-07-16] MEDS ORDERED: DIPHENHYDRAMINE HCL 50 MG/ML VIAL IV PRN (14:12)
[2019-07-16] MEDS ORDERED: OXYCODONE-ACETAMINOPHEN 5-325 MG TABLET PO PRN ×2 (14:12)
--- NOTE | 2019-07-16 14:43 | Operative Report ---
Operative Report DATE OF SURGERY: 07/16/19 PREOPERATIVE DIAGNOSIS: Right index finger abscess POSTOPERATIVE DIAGNOSIS: Same OPERATION: Irrigation and debridement right finger abscess SURGEON: MARILEE TOMPKINS ANESTHESIA: LMAC TISSUE REMOVED OR ALTERED: Aerobic, anaerobic, AFB and fungal cultures COMPLICATIONS: None ESTIMATED BLOOD LOSS: Minimal PROCEDURE: Indication for above procedure: 43-year-old male with longstanding history of diabetes developed redness and swelling in his digit this past weekend. However it continued to worsen was then seen at the emergency room where findings consistent with abscess were noted. At that point on consultation I discussed treatment option including operative versus nonoperative intervention after discussing risk and benefits of both decision was made to proceed with operative treatment. Procedure in detail: Patient was seen and evaluated in the preoperative holding area. The RIGHT upper extremity was initialized and marked. Patient received vancomycin IV scheduled for bacterial prophylaxis. Patient was taken back to the operative room where transferred to the operative table. Once they were adequately anesthetized a nonsterile tourniquet was placed on the upper extremity. A surgical team debriefing was performed ensuring all instrumentation was available, the surgical procedure was discussed with possible concerns reviewed. A digital block was performed utilizing 20 mL of 1% lidocaine without epinephrine. The upper extremity was prepped with Betadine and draped in a sterile fashion. A timeout was done identifying correct patient, procedure and extremity everyone in attendance agree with this and verbalized no concerns. The extremity was elevated and the tourniquet was inflated to 250 mmHg. Longitudinal skin incision was made along the proximal phalanx. Copious amount of purulence was encountered with necrosis of the deep soft tissues. Nonviable necrotic scar tissue and skin was excised. There is no involvement of the extensor mechanism or compromise. Aerobic, anaerobic, AFB and fungal cultures were obtained. The wound was copiously irrigated with normal saline. There was no evidence of tracking proximal to the MP joint. No purulence was encountered along the volar aspect of the digit. No definitive involvement of the PIP joint was appreciated. A [place] drain was then placed on the central aspect of the wound the proximal and distal aspects were closed loosely with interrupted 4-0 nylon. Wound was dressed with Xeroform 4 x 4's and a soft dressing. Tourniquet was deflated patient had normal peripheral perfusion. Sponge counts, instrument counts, needle counts counts were correct. Patient was then awoken from anesthesia. Transferred from the operating room table to the operating room stretcher. There was no intraoperative complications patient tolerated procedure well stable to PACU. Postoperative plan: Patient will continue on IV antibiotics pending clinical improvement
[2019-07-16] MEDS ORDERED: LEVOTHYROXINE SODIUM 0.1 MG TABLET PO SCH (19:00)
[2019-07-16] MEDS ORDERED: INSULIN DEGLUDEC 20 UNIT SUBCUT SCH (22:00)
[2019-07-16] MEDS: LEVOTHYROXINE SODIUM 0.1 MG TABLET PO SCH (22:28)
[2019-07-16] MEDS: LEVOTHYROXINE SODIUM 0.075 MG TABLET PO SCH (22:28)
[2019-07-17] MEDS: VANCOMYCIN HCL 1,250 MG in DEXTROSE 5%-WATER 250 ML IV SCH ×3 (01:15→17:23)
[2019-07-17] MEDS: ACETAMINOPHEN 325 MG TABLET PO PRN ×3 (01:15→20:05)
[2019-07-17 02:41] LABS: ABSOLUTE BASOPHILS # (AUTO) 0.1 10^3/uL (0.0-0.2); ABSOLUTE EOSINOPHILS # (AUTO) 0.2 10^3/uL (0.0-0.6); ABSOLUTE LYMPHOCYTES (AUTO) 1.5 10^3/uL (0.5-4.7); ABSOLUTE MONOCYTES (AUTO) 0.7 10^3/uL (0.1-1.4); ABSOLUTE NEUT (AUTO) 5.9 10^3/uL (1.7-8.2); BASOPHILS % (AUTO) 1.1 % (0-2); EOSINOPHILS % (AUTO) 2.6 % (0-6); HEMATOCRIT 36.5 % (37.9-51.0); HEMOGLOBIN 12.6 g/dL (13.5-17.0); LYMPHOCYTES % (AUTO) 18.1 % (13-45); MEAN CORPUSCULAR HEMOGLOBIN 30.5 pg (27.0-33.4); MEAN CORPUSCULAR HGB CONC 34.4 g/dL (32.0-36.0); MEAN CORPUSCULAR VOLUME 89 fl (80-97); MONOCYTES % (AUTO) 8.3 % (3-13); PLATELET COUNT 192 10^3/uL (150-450); RED BLOOD COUNT 4.11 10^6/uL (4.35-5.55); RED CELL DISTRIBUTION WIDTH 13.4 % (11.5-14.0); SEGMENTED NEUTROPHILS % (AUTO) 69.9 % (42-78); TOTAL CELLS COUNTED % (AUTO) 100 %; WHITE BLOOD COUNT 8.5 10^3/uL (4.0-10.5)
[2019-07-17 03:03] LABS: ANION GAP 5 (5-19); BLOOD UREA NITROGEN 10 mg/dL (7-20); CALCIUM 8.1 mg/dL (8.4-10.2); CARBON DIOXIDE 28 mmol/L (22-30); CHLORIDE 101 mmol/L (98-107); GLUCOSE 220 mg/dL (75-110); POTASSIUM 3.7 mmol/L (3.6-5.0)
[2019-07-17] MEDS: OXYCODONE-ACETAMINOPHEN 5-325 MG TABLET PO PRN ×3 (05:02→23:31)
[2019-07-17] MEDS: AMPICILLIN SODIUM/SULBACTAM NA 3 GM in NORMAL SALINE 100 ML IV SCH ×4 (05:02→23:28)
[2019-07-17] MEDS: PANTOPRAZOLE SODIUM 40 MG TABLET.DR PO SCH (05:02)
[2019-07-17] MEDS ORDERED: LEVOTHYROXINE SODIUM 0.075 MG TABLET PO SCH (06:00)
[2019-07-17] MEDS ORDERED: LEVOTHYROXINE SODIUM 0.1 MG TABLET PO SCH (06:00)
--- NOTE | 2019-07-17 07:58 | PDOC PROGRESS REPORT ---
Subjective Progress Note for:: 07/17/19 Reason For Visit: RIGHT HAND CELLULITIS 43-year-old white male [id number] status post I&D of a right hand abscess yesterday. Uneventful postoperative course. Patient remains afebrile. Pain is well controlled with Tylenol and Percocet. Mild elevation in blood glucose. Physical Exam Vital Signs: Temp Pulse Resp BP Pulse Ox 37.0 C 89 16 130/53 H 95 07/16/19 23:49 07/16/19 23:49 07/16/19 23:49 07/16/19 23:49 07/16/19 23:49 Intake & Output 07/16/19 07/17/19 07/18/19 06:59 06:59 06:59 Intake Total 220 2725 Output Total 10 Balance 220 2715 Weight 106 kg 106 kg Physical Exam: Overweight middle-aged white male sitting up in bed. Patient is alert, oriented, and appropriate. General appearance: PRESENT: no acute distress Respiratory exam: PRESENT: unlabored Cardiovascular exam: PRESENT: RRR Vascular exam: PRESENT: normal capillary refill Extremities exam: PRESENT: other - Right hand immobilized in a postoperative dressing. Per Dr. cesar's request this is left intact. Results Laboratory Results: 07/17/19 02:32 07/17/19 02:32 07/16/19 07/17/19 07/17/19 08:45 02:32 02:32 WBC 8.5 RBC 4.11 L Hgb 12.6 L Hct 36.5 L MCV 89 MCH 30.5 MCHC 34.4 RDW 13.4 Plt Count 192 Seg Neutrophils % 69.9 Sodium 133.9 L Potassium 3.7 Chloride 101 Carbon Dioxide 28 Anion Gap 5 BUN 10 Creatinine 0.75 Est GFR ( Amer) > 60 Glucose 220 H Calcium 8.1 L C-Reactive Protein 132.1 H Impressions: Hand X-Ray 07/16/19 00:48 IMPRESSION: No evidence of acute bony injury to the hand. Status: Imported from PACS Assessment & Plan - Diagnosis (1) Abscess of right ring finger Is this a current diagnosis for this admission?: Yes Plan: Cultures remain no growth so far. Patient continues on with empiric antibiotics. Dressing change tomorrow per Dr. cesar. - Time Time Spent with patient: 15-24 minutes Anticipated discharge: Home with Homehealth Within: Other
[2019-07-17] MEDS ORDERED: INSULIN DEGLUDEC 35 UNIT SUBCUT SCH (08:16)
--- NOTE | 2019-07-17 08:19 | PDOC PROGRESS REPORT ---
Subjective Progress Note for:: 07/17/19 Subjective:: Patient is currently doing well Have an incision and drainage done on her right middle finger Patient's blood sugar is 160 in the morning No chest pain no short of breath no fever Reason For Visit: RIGHT HAND CELLULITIS Physical Exam Vital Signs: Temp Pulse Resp BP Pulse Ox 98.1 F 91 16 148/84 H 96 07/17/19 07:45 07/17/19 07:45 07/17/19 07:45 07/17/19 07:45 07/17/19 07:45 Intake & Output 07/16/19 07/17/19 07/18/19 06:59 06:59 06:59 Intake Total 220 2725 Output Total 10 Balance 220 2715 Weight 106 kg 106 kg General appearance: PRESENT: no acute distress, well-developed, well-nourished Head exam: PRESENT: atraumatic, normocephalic Eye exam: PRESENT: conjunctiva pink, EOMI, PERRLA. ABSENT: scleral icterus Ear exam: PRESENT: normal external ear exam Mouth exam: PRESENT: moist, tongue midline Neck exam: PRESENT: full ROM. ABSENT: carotid bruit, JVD, lymphadenopathy, thyromegaly Respiratory exam: PRESENT: clear to auscultation [place] Cardiovascular exam: PRESENT: RRR. ABSENT: diastolic murmur, rubs, systolic murmur Pulses: PRESENT: normal dorsalis pedis pul, +2 pedal pulses bilateral Vascular exam: PRESENT: normal capillary refill GI/Abdominal exam: PRESENT: normal bowel sounds, soft. ABSENT: distended, guarding, mass, organolmegaly, rebound, tenderness Rectal exam: PRESENT: deferred Additional comments: Right hand dressing is intact Musculoskeletal exam: PRESENT: ambulatory Neurological exam: PRESENT: alert, awake, oriented to person, oriented to place, oriented to time, oriented to situation, CN II-XII grossly intact. ABSENT: motor sensory deficit Psychiatric exam: PRESENT: appropriate affect, normal mood. ABSENT: homicidal ideation, suicidal ideation Skin exam: PRESENT: dry, intact, warm. ABSENT: cyanosis, rash Results Laboratory Results: 07/17/19 02:32 07/17/19 02:32 07/16/19 07/17/19 07/17/19 08:45 02:32 02:32 WBC 8.5 RBC 4.11 L Hgb 12.6 L Hct 36.5 L MCV 89 MCH 30.5 MCHC 34.4 RDW 13.4 Plt Count 192 Seg Neutrophils % 69.9 Sodium 133.9 L Potassium 3.7 Chloride 101 Carbon Dioxide 28 Anion Gap 5 BUN 10 Creatinine 0.75 Est GFR ( Amer) > 60 Glucose 220 H Calcium 8.1 L C-Reactive Protein 132.1 H Impressions: Hand X-Ray 07/16/19 00:48 IMPRESSION: No evidence of acute bony injury to the hand. Assessment & Plan - Diagnosis (1) Abscess of right ring finger Is this a current diagnosis for this admission?: Yes Plan: Status post surgery continues to IV antibiotic (2) Diabetes mellitus type 1 Qualifiers: Diabetes mellitus complication status: with other specified complication Qualified Code(s): E10.69 - Type 1 diabetes mellitus with other specified complication Is this a current diagnosis for this admission?: Yes Plan: Start the patient on the Lantus 35 units at night and continue sliding-scale (3) Hyperlipidemia Qualifiers: Hyperlipidemia type: unspecified Qualified Code(s): E78.5 - Hyperlipidemia, unspecified Is this a current diagnosis for this admission?: Yes (4) Hypothyroid Qualifiers: Hypothyroidism type: unspecified Qualified Code(s): E03.9 - Hypothyroidism, unspecified Is this a current diagnosis for this admission?: Yes - Time Time Spent with patient: 15-24 minutes Level of Care: MEDICAL Medications reviewed and adjusted accordingly: Yes Within: Other - Plan Summary Plan Summary: Continues to current medications
[2019-07-17] MEDS: INSULIN LISPRO 100 UNIT/ML 3 ML VIAL SUBCUT SCH ×4 (08:47→22:09)
[2019-07-17] MEDS: NORMAL SALINE 1000 ML 1,000 ML IV PRN (09:58)
[2019-07-17] MEDS ORDERED: (PENDING PHARMACY ID) (Levothyroxine Sodium [Levothyroxine Sodium] 175 MCG) PO SCH (10:00)
[2019-07-17 10:01] LABS: VANCOMYCIN,TROUGH 13.6 ug/mL (5.0-20.0)
[2019-07-17] MEDS: LEVOTHYROXINE SODIUM 0.075 MG TABLET PO SCH (17:21)
[2019-07-17] MEDS: LEVOTHYROXINE SODIUM 0.1 MG TABLET PO SCH (17:21)
[2019-07-17] MEDS: INSULIN GLARGINE,HUM.REC.ANLOG 1,000 UNIT/10 ML VIAL SUBCUT SCH (22:10)
[2019-07-18] MEDS: VANCOMYCIN HCL 1,250 MG in DEXTROSE 5%-WATER 250 ML IV SCH (01:05)
[2019-07-18] MEDS: AMPICILLIN SODIUM/SULBACTAM NA 3 GM in NORMAL SALINE 100 ML IV SCH (05:20)
[2019-07-18] MEDS: PANTOPRAZOLE SODIUM 40 MG TABLET.DR PO SCH (05:20)
[2019-07-18 06:09] LABS: ABSOLUTE BASOPHILS # (AUTO) 0.1 10^3/uL (0.0-0.2); ABSOLUTE EOSINOPHILS # (AUTO) 0.3 10^3/uL (0.0-0.6); ABSOLUTE LYMPHOCYTES (AUTO) 1.7 10^3/uL (0.5-4.7); ABSOLUTE MONOCYTES (AUTO) 0.5 10^3/uL (0.1-1.4); ABSOLUTE NEUT (AUTO) 2.8 10^3/uL (1.7-8.2); EOSINOPHILS % (AUTO) 4.8 % (0-6); HEMATOCRIT 36.9 % (37.9-51.0); HEMOGLOBIN 12.9 g/dL (13.5-17.0); LYMPHOCYTES % (AUTO) 32.2 % (13-45); MEAN CORPUSCULAR HEMOGLOBIN 30.9 pg (27.0-33.4); MEAN CORPUSCULAR HGB CONC 34.9 g/dL (32.0-36.0); MEAN CORPUSCULAR VOLUME 89 fl (80-97); PLATELET COUNT 204 10^3/uL (150-450); RED BLOOD COUNT 4.17 10^6/uL (4.35-5.55); RED CELL DISTRIBUTION WIDTH 13.1 % (11.5-14.0); TOTAL CELLS COUNTED % (AUTO) 100 %; WHITE BLOOD COUNT 5.4 10^3/uL (4.0-10.5)
[2019-07-18 06:31] LABS: ANION GAP 6 (5-19); BLOOD UREA NITROGEN 8 mg/dL (7-20); CALCIUM 8.3 mg/dL (8.4-10.2); CARBON DIOXIDE 28 mmol/L (22-30); CHLORIDE 102 mmol/L (98-107); GLUCOSE 130 mg/dL (75-110); POTASSIUM 3.6 mmol/L (3.6-5.0)
[2019-07-18] MEDS: INSULIN LISPRO 100 UNIT/ML 3 ML VIAL SUBCUT SCH ×4 (07:39→21:10)
[2019-07-18] MEDS ORDERED: ONDANSETRON HCL INJ/PF 4 MG/2 ML SDV IV PRN (10:00)
[2019-07-18] MEDS: CLINDAMYCIN 600 MG/D5W RTU 600 MG/50 ML RTUPB IV SCH ×2 (10:31→18:00)
[2019-07-18] MEDS: ACETAMINOPHEN 325 MG TABLET PO PRN (10:35)
--- NOTE | 2019-07-18 10:48 | PDOC PROGRESS REPORT ---
Subjective Progress Note for:: 07/18/19 Subjective:: Patient is currently doing fair Denied any chest pain no short of breath no fever no chills Patient's pain on surgical site is stable wound cultures suggest MRSA which patient have a history of MRSA in the past Reason For Visit: RIGHT HAND CELLULITIS Physical Exam Vital Signs: Temp Pulse Resp BP Pulse Ox 97.7 F 64 18 125/56 L 98 07/18/19 07:39 07/18/19 07:39 07/18/19 07:39 07/18/19 07:39 07/18/19 07:39 Intake & Output 07/17/19 07/18/19 07/19/19 06:59 06:59 06:59 Intake Total 2825 2835 Output Total 10 Balance 2815 2835 Weight 106 kg 107.2 kg General appearance: PRESENT: no acute distress, well-developed, well-nourished Head exam: PRESENT: atraumatic, normocephalic Eye exam: PRESENT: conjunctiva pink, EOMI, PERRLA. ABSENT: scleral icterus Ear exam: PRESENT: normal external ear exam Mouth exam: PRESENT: moist, tongue midline Neck exam: PRESENT: full ROM. ABSENT: carotid bruit, JVD, lymphadenopathy, thyromegaly Respiratory exam: PRESENT: clear to auscultation [place] Cardiovascular exam: PRESENT: RRR. ABSENT: diastolic murmur, rubs, systolic murmur Pulses: PRESENT: normal dorsalis pedis pul, +2 pedal pulses bilateral Vascular exam: PRESENT: normal capillary refill GI/Abdominal exam: PRESENT: normal bowel sounds, soft. ABSENT: distended, guarding, mass, organolmegaly, rebound, tenderness Rectal exam: PRESENT: deferred Musculoskeletal exam: PRESENT: ambulatory Neurological exam: PRESENT: alert, awake, oriented to person, oriented to place, oriented to time, oriented to situation, CN II-XII grossly intact. ABSENT: motor sensory deficit Psychiatric exam: PRESENT: appropriate affect, normal mood. ABSENT: homicidal ideation, suicidal ideation Skin exam: PRESENT: dry, intact, warm. ABSENT: cyanosis, rash Results Laboratory Results: 07/18/19 05:30 07/18/19 05:30 07/18/19 07/18/19 05:30 05:30 WBC 5.4 RBC 4.17 L Hgb 12.9 L Hct 36.9 L MCV 89 MCH 30.9 MCHC 34.9 RDW 13.1 Plt Count 204 Seg Neutrophils % 52.0 Sodium 136.1 L Potassium 3.6 Chloride 102 Carbon Dioxide 28 Anion Gap 6 BUN 8 Creatinine 0.65 Est GFR ( Amer) > 60 Glucose 130 H Calcium 8.3 L 07/16/19 14:17 Finger - Abscess Gram Stain - Final 07/16/19 14:17 Finger - Abscess Wound Culture - Final Mrsa (Meth Resis Staph Aureus) No Anaerobic Organisms 07/16/19 14:18 Finger - Abscess Gram Stain - Final 07/16/19 14:18 Finger - Abscess Wound Culture - Final Mrsa (Meth Resis Staph Aureus) No Anaerobic Organisms Impressions: Hand X-Ray 07/16/19 00:48 IMPRESSION: No evidence of acute bony injury to the hand. Assessment & Plan - Diagnosis (1) Abscess of right ring finger Is this a current diagnosis for this admission?: Yes Plan: Wound culture suggest MRSA will change to clindamycin 600 mg IV every 8 which is sensitive to the organisms stop the vancomycin and Augmentin (2) Diabetes mellitus type 1 Qualifiers: Diabetes mellitus complication status: with other specified complication Qualified Code(s): E10.69 - Type 1 diabetes mellitus with other specified complication Is this a current diagnosis for this admission?: Yes Plan: Continues the insulin and a sliding scale (3) Hyperlipidemia Qualifiers: Hyperlipidemia type: unspecified Qualified Code(s): E78.5 - Hyperlipidemia, unspecified Is this a current diagnosis for this admission?: Yes (4) Hypothyroid Qualifiers: Hypothyroidism type: unspecified Qualified Code(s): E03.9 - Hypothyroidism, unspecified Is this a current diagnosis for this admission?: Yes (5) MRSA (methicillin resistant Staphylococcus aureus) infection Is this a current diagnosis for this admission?: Yes Plan: Start the patient on IV clindamycin's hopefully discharge home with the p.o. antibiotic once a clear from the surgery - Time Time Spent with patient: 15-24 minutes Level of Care: MEDICAL Medications reviewed and adjusted accordingly: Yes Anticipated discharge: Home Within: Other - Plan Summary Plan Summary: See MD orders as above
--- NOTE | 2019-07-18 12:00 | PDOC PROGRESS REPORT ---
Subjective Progress Note for:: 07/18/19 Subjective:: Patient states his pain is controlled. No issues overnight. Denies fever chills or sweats. States the pain has improved. Reason For Visit: RIGHT HAND CELLULITIS Physical Exam Vital Signs: Temp Pulse Resp BP Pulse Ox 97.7 F 64 18 125/56 L 98 07/18/19 07:39 07/18/19 07:39 07/18/19 07:39 07/18/19 07:39 07/18/19 07:39 Intake & Output 07/17/19 07/18/19 07/19/19 06:59 06:59 06:59 Intake Total 2825 2835 Output Total 10 Balance 2815 2835 Weight 106 kg 107.2 kg Musculoskeletal exam: PRESENT: other - Right ring finger: Maceration on the skin edges with desquamation. Drain removed today. Mild bloody serosanguineous drainage no purulent drainage. No tenderness on the flexor sheath. MP joint range of motion 0 degrees - 90 degrees. No pain with PIP joint range of motion PIP range of motion 15 degrees - 65 degrees. No pain with passive extension. Cap refill less than 2 seconds. Results Laboratory Results: 07/18/19 05:30 07/18/19 05:30 07/18/19 07/18/19 05:30 05:30 WBC 5.4 RBC 4.17 L Hgb 12.9 L Hct 36.9 L MCV 89 MCH 30.9 MCHC 34.9 RDW 13.1 Plt Count 204 Seg Neutrophils % 52.0 Sodium 136.1 L Potassium 3.6 Chloride 102 Carbon Dioxide 28 Anion Gap 6 BUN 8 Creatinine 0.65 Est GFR ( Amer) > 60 Glucose 130 H Calcium 8.3 L 07/16/19 14:17 Finger - Abscess Gram Stain - Final 07/16/19 14:17 Finger - Abscess Wound Culture - Final Mrsa (Meth Resis Staph Aureus) No Anaerobic Organisms 07/16/19 14:18 Finger - Abscess Gram Stain - Final 07/16/19 14:18 Finger - Abscess Wound Culture - Final Mrsa (Meth Resis Staph Aureus) No Anaerobic Organisms Impressions: Hand X-Ray 07/16/19 00:48 IMPRESSION: No evidence of acute bony injury to the hand. Assessment & Plan - Diagnosis (1) Abscess of right ring finger Is this a current diagnosis for this admission?: Yes Plan: Status post irrigation debridement right ring finger Despite severity of infection he is showing clinical improvement. At this point he is to continue twice daily wet-to-dry dressing changes. Have encouraged range of motion. Plan will be for patient to be discharged to home tomorrow morning and may continue clindamycin likely for 10 days. Patient will follow-up in the office with me in 1 week for wound check he will contact our office if he has any increasing concerns including fever greater than 101.5, redness, swelling or pain. - Time Time Spent with patient: Less than 15 minutes
[2019-07-18] MEDS: NORMAL SALINE 1000 ML 1,000 ML IV PRN (16:36)
[2019-07-18] MEDS: LEVOTHYROXINE SODIUM 0.075 MG TABLET PO SCH (18:00)
[2019-07-18] MEDS: LEVOTHYROXINE SODIUM 0.1 MG TABLET PO SCH (18:00)
[2019-07-18] MEDS: OXYCODONE-ACETAMINOPHEN 5-325 MG TABLET PO PRN (19:58)
[2019-07-18] MEDS: INSULIN GLARGINE,HUM.REC.ANLOG 1,000 UNIT/10 ML VIAL SUBCUT SCH (21:10)
[2019-07-19] MEDS: CLINDAMYCIN 600 MG/D5W RTU 600 MG/50 ML RTUPB IV SCH ×2 (01:31→10:00)
[2019-07-19 05:41] LABS: ABSOLUTE EOSINOPHILS # (AUTO) 0.3 10^3/uL (0.0-0.6); ABSOLUTE MONOCYTES (AUTO) 0.5 10^3/uL (0.1-1.4); ABSOLUTE NEUT (AUTO) 2.3 10^3/uL (1.7-8.2); BASOPHILS % (AUTO) 0.9 % (0-2); HEMATOCRIT 37.5 % (37.9-51.0); LYMPHOCYTES % (AUTO) 39.5 % (13-45); MEAN CORPUSCULAR HEMOGLOBIN 30.8 pg (27.0-33.4); MEAN CORPUSCULAR HGB CONC 34.6 g/dL (32.0-36.0); MEAN CORPUSCULAR VOLUME 89 fl (80-97); MONOCYTES % (AUTO) 9.5 % (3-13); PLATELET COUNT 238 10^3/uL (150-450); RED BLOOD COUNT 4.21 10^6/uL (4.35-5.55); RED CELL DISTRIBUTION WIDTH 13.3 % (11.5-14.0); SEGMENTED NEUTROPHILS % (AUTO) 45.1 % (42-78); TOTAL CELLS COUNTED % (AUTO) 100 %; WHITE BLOOD COUNT 5.2 10^3/uL (4.0-10.5)
[2019-07-19 05:57] LABS: ANION GAP 6 (5-19); BLOOD UREA NITROGEN 12 mg/dL (7-20); CALCIUM 8.5 mg/dL (8.4-10.2); CARBON DIOXIDE 28 mmol/L (22-30); CHLORIDE 104 mmol/L (98-107); GLUCOSE 155 mg/dL (75-110); POTASSIUM 3.8 mmol/L (3.6-5.0)
[2019-07-19] MEDS: PANTOPRAZOLE SODIUM 40 MG TABLET.DR PO SCH (06:25)
[2019-07-19] MEDS: INSULIN LISPRO 100 UNIT/ML 3 ML VIAL SUBCUT SCH ×2 (08:00→12:38)
--- NOTE | 2019-07-19 09:09 | PDOC DISCHARGE SUMMARY ---
Impression - Admit/DC Date/PCP Admission Date/Primary Care Provider: 07/16/19 02:07 YAMINI KENNEDY MD Discharge Date: 07/19/19 - Discharge Diagnosis (1) Abscess of right ring finger Is this a current diagnosis for this admission?: Yes (2) Diabetes mellitus type 1 Is this a current diagnosis for this admission?: Yes (3) Hyperlipidemia Is this a current diagnosis for this admission?: Yes (4) Hypothyroid Is this a current diagnosis for this admission?: Yes (5) MRSA (methicillin resistant Staphylococcus aureus) infection Is this a current diagnosis for this admission?: Yes - Additional Information Resuscitation Status: Full Code Discharge Diet: Diabetic Referrals: MARILEE TOMPKINS DO [ACTIVE STAFF] - 07/26/19 9:40 am () Prescriptions: Clindamycin HCl 600 mg PO Q8 10 Days #60 capsule Ibuprofen [Ibu] 800 mg PO Q8HP PRN #60 tablet PRN Reason: Lactobacillus Acidophilus [Probiotic Acidophilus] 1 each PO BID #20 tablet Home Medications: Insulin Aspart [Novolog Flexpen] 0 unit SUBCUT .SLD SCALE PRN 08/04/15 Levothyroxine Sodium 175 mcg PO DAILY 08/04/15 Insulin Degludec [Tresiba Flextouch U-100] 48 units SUBCUT QHS 07/16/19 Simvastatin [Zocor 40 mg Tablet] 40 mg PO QHS 07/16/19 Tadalafil 20 mg pe PO DAILYP PRN 07/16/19 Clindamycin HCl 600 mg PO Q8 10 Days #60 capsule 07/19/19 Ibuprofen [Ibu] 800 mg PO Q8HP PRN #60 tablet 07/19/19 Lactobacillus Acidophilus [Probiotic Acidophilus] 1 each PO BID #20 tablet 07/19/19 History of Present Illiness History of Present Illness: GAMAL CURRIE is a 43 year old male This is a 43-year-old male with a type 1 diabetes insulin-dependent currently follow with the 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 Patient's not sure anything spider bite but could be no injury patient's developed a small pustule and then started developing the swelling and the redness Yesterday when I saw the patient start on a p.o. Augmentin and instructed if his pain getting worse come to the ER patient stated to dose of the Augmentin yesterday but pain is getting more worse came to the emergency departments last night\ Patient is received the IV vancomycin and Unasyn with a history of the MRSA in the past Patient seen by the hand surgeon scheduled for the debridement today Patient's blood sugar is 104 this morning he is denied any chest pain no short of breath Hospital Course Hospital Course: This is a 43-year-old male's with a type 1 diabetes admitting in the hospital for the right middle finger abscess cellulitis patient underwent further incision and drainage and patient's wound cultures grew up MRSA Patient initially treated with the Augmentin and IV vancomycin and switch to the IV clindamycin's per culture\ Patient is otherwise doing well no fever no chills white count is normal as per orthopedic surgery patients can be discharged home with the weight and dry dressings and continues the p.o. antibiotic for 10 days Patient's otherwise walk around without any problem blood sugar is stable denied any other issues discharged home with the p.o. antibiotic for 10 days Discussed with the patient any fever any increasing any pain call back or come to the ER otherwise patient have a follow-up appointment with the orthopedic surgery in 1 week and follow in office 2 weeks Physical Exam Vital Signs: Temp Pulse Resp BP Pulse Ox 97.8 F 70 18 117/52 L 97 07/19/19 01:13 07/19/19 01:13 07/19/19 01:13 07/19/19 01:13 07/19/19 01:13 Intake & Output 07/18/19 07/19/19 07/20/19 06:59 06:59 06:59 Intake Total 2835 2594 Balance 2835 2594 Weight 107.2 kg 106.9 kg General appearance: PRESENT: no acute distress, well-developed, well-nourished Head exam: PRESENT: atraumatic, normocephalic Eye exam: PRESENT: conjunctiva pink, EOMI, PERRLA. ABSENT: scleral icterus Ear exam: PRESENT: normal external ear exam Mouth exam: PRESENT: moist, tongue midline Neck exam: ABSENT: carotid bruit, JVD, lymphadenopathy, thyromegaly Respiratory exam: PRESENT: clear to auscultation [place]. ABSENT: rales, rhonchi, wheezes Cardiovascular exam: PRESENT: RRR. ABSENT: diastolic murmur, rubs, systolic murmur Pulses: PRESENT: normal dorsalis pedis pul Vascular exam: PRESENT: normal capillary refill GI/Abdominal exam: PRESENT: normal bowel sounds, soft. ABSENT: distended, guarding, mass, organolmegaly, rebound, tenderness Rectal exam: PRESENT: deferred Extremities exam: PRESENT: full ROM. ABSENT: calf tenderness, clubbing, pedal edema Musculoskeletal exam: PRESENT: ambulatory Neurological exam: PRESENT: alert, awake, oriented to person, oriented to place, oriented to time, oriented to situation, CN II-XII grossly intact. ABSENT: motor sensory deficit Psychiatric exam: PRESENT: appropriate affect, normal mood. ABSENT: homicidal ideation, suicidal ideation Skin exam: PRESENT: dry, intact, warm. ABSENT: cyanosis, rash Additional comments: Right hand the dressing is intact the swelling is much reduced Results Laboratory Results: WBC 5.2 10^3/uL (4.0-10.5) 07/19/19 05:12 RBC 4.21 10^6/uL (4.35-5.55) L 07/19/19 05:12 Hgb 13.0 g/dL (13.5-17.0) L 07/19/19 05:12 Hct 37.5 % (37.9-51.0) L 07/19/19 05:12 MCV 89 fl (80-97) 07/19/19 05:12 MCH 30.8 pg (27.0-33.4) 07/19/19 05:12 MCHC 34.6 g/dL (32.0-36.0) 07/19/19 05:12 RDW 13.3 % (11.5-14.0) 07/19/19 05:12 Plt Count 238 10^3/uL (150-450) 07/19/19 05:12 Lymph % (Auto) 39.5 % (13-45) 07/19/19 05:12 [place] % (Auto) 9.5 % (3-13) 07/19/19 05:12 Eos % (Auto) 5.0 % (0-6) 07/19/19 05:12 Baso % (Auto) 0.9 % (0-2) 07/19/19 05:12 Absolute Neuts (auto) 2.3 10^3/uL (1.7-8.2) 07/19/19 05:12 Absolute Lymphs (auto) 2.0 10^3/uL (0.5-4.7) 07/19/19 05:12 Absolute Monos (auto) 0.5 10^3/uL (0.1-1.4) 07/19/19 05:12 Absolute Eos (auto) 0.3 10^3/uL (0.0-0.6) 07/19/19 05:12 Absolute Basos (auto) 0.0 10^3/uL (0.0-0.2) 07/19/19 05:12 Seg Neutrophils % 45.1 % (42-78) 07/19/19 05:12 ESR 39 mm/hr (0-15) H 07/16/19 08:45 Sodium 137.9 mmol/L (137-145) 07/19/19 05:12 Potassium 3.8 mmol/L (3.6-5.0) 07/19/19 05:12 Chloride 104 mmol/L (98-107) 07/19/19 05:12 Carbon Dioxide 28 mmol/L (22-30) 07/19/19 05:12 Anion Gap 6 (5-19) 07/19/19 05:12 BUN 12 mg/dL (7-20) 07/19/19 05:12 Creatinine 0.74 mg/dL (0.52-1.25) 07/19/19 05:12 Est GFR ( Amer) > 60 (>60) 07/19/19 05:12 Est GFR (MDRD) Non-Af > 60 (>60) 07/19/19 05:12 Glucose 155 mg/dL (75-110) H 07/19/19 05:12 POC Glucose 163 mg/dL (70-110) H 07/19/19 06:29 Calcium 8.5 mg/dL (8.4-10.2) 07/19/19 05:12 Total Bilirubin 0.9 mg/dL (0.2-1.3) 07/15/19 23:55 Direct Bilirubin 0.1 mg/dL (0.0-0.4) 07/15/19 23:55 Neonat Total Bilirubin Not Reportable 07/15/19 23:55 Neonat Direct Bilirubin Not Reportable 07/15/19 23:55 Neonat Indirect Bili Not Reportable 07/15/19 23:55 AST 24 U/L (17-59) 07/15/19 23:55 ALT 17 U/L (<50) 07/15/19 23:55 Alkaline Phosphatase 94 U/L (38-126) 07/15/19 23:55 C-Reactive Protein 132.1 mg/L (<10.0) H 07/16/19 08:45 Total Protein 7.4 g/dL (6.3-8.2) 07/15/19 23:55 Albumin 4.2 g/dL (3.5-5.0) 07/15/19 23:55 Time Trough Drawn 0907/17/19 09:22 Vancomycin Trough 13.6 ug/mL (5.0-20.0) 07/17/19 09:22 Impressions: Hand X-Ray 07/16/19 00:48 IMPRESSION: No evidence of acute bony injury to the hand. Plan Time Spent: Greater than 30 Minutes - Follow-up with the orthopedic surgery in 1 week and follow in office in 2 weeks Stroke Is this a Stroke Patient?: No Acute Heart Failure - Is this a Heart Failure Patient?: No
[2019-07-19 11:37] VITALS: BP 137/89
== END 2019-07-19 12:50 | disposition home or self-care (01) | DRG 603 ==
LOC: ER 21:45 → EH 07-16 02:07 → 4N 07-16 03:19
PROVIDERS: ADMIT Family Medicine; ATTEND Family Medicine
PROC: 0HBFXZZ Excision of Right Hand Skin, External Approach (ICD-10-PCS; 2019-07-16)
PROC: 0H9FXZZ Drainage of Right Hand Skin, External Approach (ICD-10-PCS; principal; 2019-07-16 11:45)
DX: L02.511 Cutaneous abscess of right hand (principal); E10.8 Type 1 diabetes mellitus with unspecified complications; E78.00 Pure hypercholesterolemia, unspecified; E03.9 Hypothyroidism, unspecified; B95.62 Methicillin resistant Staphylococcus aureus infection as the cause of diseases classified elsewhere; Z86.14 Personal history of Methicillin resistant Staphylococcus aureus infection; Z79.4 Long term (current) use of insulin
CPT/HCPCS: 00400; 36415; 80048; 80053; 80202; 82962; 85025; 85652; 86140; 87040; 87070; 87075; 87077; 87186; 87205; 96365; 99284; J0295; J1815; J2250; J2270; J2405; J2704; J3010; J3370; J3490; J7030; J7050; J7060